=== PATIENT | female | born 1995 | race Caucasian/White ===

== ENCOUNTER 2018-02-12 19:36 | Emergency (ER) | payer OTHER ==
[~2018-02-12] VITALS: Ht 160 cm; Wt 61.2 kg
[2018-02-12] MEDS ORDERED: FAMOTIDINE. 20 MG/2 ML VIAL IV ONE ×2 (20:00→20:04)
[2018-02-12] MEDS ORDERED: diphenhydrAMINE 50 MG/1 ML VIAL IV ONE (20:00)
[2018-02-12] MEDS ORDERED: methylPREDNISolone SOD SUCC 125 MG/2 ML VIAL IV ONE (20:00)
[2018-02-12] MEDS ORDERED: methylPREDNISolone SOD SUCC 125 MG/2 ML VIAL ONE (20:04)
[2018-02-12] MEDS ORDERED: diphenhydrAMINE 50 MG/1 ML VIAL ONE (20:04)
--- NOTE | 2018-02-12 20:05 | NUR ---
PT A/OX4, ABLE TO FOLLOW COMMANDS. PT C/O SOB. PRESENTS IN TRIPOD POSITION. PT STATES SHE WAS JUST FINISHED EATING DINNER WHEN SUDDEN ONSET OF SOB. VSS. PT DENIES PAIN, C/P, N/V/D, DIZZINESS, HEADACHE.
[2018-02-12] MEDS ORDERED: EPINEPHRINE-PF 1:1000 1 MG/ML AMPUL IM ONE (20:15)
[2018-02-12] MEDS ORDERED: EPINEPHRINE 1 MG/1 ML AMP ONE (20:22)
--- NOTE | 2018-02-12 23:55 | NUR ---
Patient discharged to home in stable conditon. Written and verbal after care instructions given. Patient verbalizes understanding of instructions. Pt. d/c per MD orders, all pt. belongings taken w/ pt., no acute distress,
--- NOTE | 2018-02-13 00:01 | NUR ---
Patient discharged to home in stable conditon. Written and verbal after care instructions given. Patient verbalizes understanding of instructions. PT D/C W/ PRESCRIPTIONS. ALL BELONGINGS W/ PT. PT SELF-AMBULATED W/O DIFFICULTY. 20G IV ACCESS IN L HAND REMOVED PRIOR TO D/C - INNER CANNULA INTACT. PT INSTRUCTED NOT TO DRIVE - WILL BE PICKED UP BY FRIEND IN PRIVATE VEHICLE.
== END 2018-02-13 00:01 | disposition home or self-care (01) ==
LOC: ER 19:38
DX: T78.09XA Anaphylactic reaction due to other food products, initial encounter (principal); R07.89 Other chest pain; Z88.2 Allergy status to sulfonamides
CPT/HCPCS: 93005; 96372; 96374; 96375; 99291; J0171; J1200; J2930; J3490; A4663